=== PATIENT | female | born 1995 | race Caucasian/White ===

== ENCOUNTER 2016-12-17 04:00 | Inpatient (IN) ==
[2016-12-17] MEDS ORDERED: Famotidine 20 MG/2 ML VIAL IVP PRN (05:47)
[2016-12-17] MEDS ORDERED: miSOPROStol 25 MCG TABLET VG PRN (05:47)
[2016-12-17] MEDS ORDERED: Metoclopramide 10 MG/2 ML VIAL IVP PRN (05:47)
[2016-12-17] MEDS ORDERED: Ondansetron 4 MG/2 ML VIAL IVP PRN (05:47)
[2016-12-17] MEDS ORDERED: Naloxone 0.4 MG/ML INJ IVP PRN (05:47)
[2016-12-17 07:18] LABS: Basophils # 0.1 K/mcL (0.0-0.2); Basophils % 0.4 %; Eosinophils # 0.1 K/mcL (0.0-0.6); Eosinophils % 0.7 %; Hematocrit 39.9 % (35.3-44.9); Hemoglobin 13.6 g/dL (11.5-15.4); Immature Granulocytes % 1.2 % (0-4); Lymphocytes # 4.4 K/mcL (0.6-4.6); Lymphocytes % 26.3 %; Mean Corpuscular HGB Conc 34.1 g/dL (31.6-35.5); Mean Corpuscular Hemoglobin 30.7 pg (28.0-33.3); Mean Corpuscular Volume 90.1 fL (83.0-100.0); Mean Platelet Volume 11.3 fL (9.4-12.4); Monocytes # 1.1 K/mcL (0.0-1.3); Monocytes % 6.7 %; Neutrophils # 10.8 K/mcL (1.6-8.9); Platelet Count 245 K/mcL (140-400); Red Blood Count 4.43 M/mcL (3.82-4.97); Red Cell Distribution Width 12.4 % (11.5-14.5); Segmented Neutrophils % 64.7 %
--- NOTE | 2016-12-17 08:03 | Anesthesia Evaluation PreOp ---
Date of Encounter: 12/17/16 Time of Encounter: 08:01 - Past History Planned Operation: LOU Cardiac History: Denies any Significant Hx Pulmonary History: Smoker, Pack/yr (6) MANAGING CONSULTANT History: Other (Chronic lumbar back pain but no associated LE radiculopathy ; upon questioning about scoliosis, patient states that mother told her she has a "crooked" spine but has never had any formal diagnosis.) Other Medical History: Hepatic (hepatits C; asymptomatic) Anesthesia History: No Prior Anesthetic Complications (never had any procedure requiring neuraxial anesthesia; denies personal and family h/o GA complications) , Past Anesthesia (milan vieyra;) Test: Positive Alcohol Use: none Drug use: other Medications and Allergies Formula Tablet 1 tab PO DAILY 12/17/16 [History] Subutex 8 mg PO BID 12/17/16 [History] Allergies No Known Allergies Allergy (Verified 12/17/16 05:19) - Meds/Allergy Pre-op Review Medications Reviewed: Yes Allergies Reviewed: Yes Beta Blockers on Current Med List: No Anesthesia Results - Labs 12/17/16 06:44 Anesthesia Exam 123/79; hr 87; 98.7F; rr16 Height: 1.7m Weight: 78kg NPO (# of Hours): solids > 8h Pain Scale: 0 Pain Scale Used: Numeric (1 - 10) - HEENT Pupil (Motor): Pupils equal Mallampati: II Teeth: Poor dentition Oral Opening: Greater than 3 - MANAGING CONSULTANT LOC: Oriented MANAGING CONSULTANT Motor: Normal RUE, Normal LUE, Normal RLE, Normal LLE, Normal Face MANAGING CONSULTANT Sensory: Normal: RUE, LUE, RLE, LLE, Face - Cardiac Rhythm: Regular Murmur: None - Pulmonary Breath Sounds: bilateral Clear Respiratory Effort: Symmetrical Anesthesia Assess/Plan ASA Score: 2 Modified [place] Scale for Level of Consciousness: Cooperative, oriented, and tranquil Anesthetic Plan: Regional Autologous Blood: No Monitoring Plan: Standard Monitors Recovery Plan: Other
[2016-12-17] MEDS: Ringers Solution, Lactated 1,000 ML IVC SCH ×3 (08:47→18:55)
--- NOTE | 2016-12-17 09:01 | OB/GYN History & Physical ---
Date of Encounter: 12/17/16 Time of Encounter: 08:59 Assessment and Plan (1) 40 weeks gestation of Current visit: Yes Status: Acute patient plans to have an epidural with induction and likely . Will continue to monitor patient with FHR/tocometer. Saline IV lock, IVF as needed. (2) Elective induction of labor planned Current visit: Yes Status: Acute patient plans to have an epidural with induction and likely . Will continue to monitor patient with FHR/tocometer. Saline IV lock, IVF as needed. (3) complicated by subutex maintenance, antepartum Current visit: Yes Status: Acute History of Present Illness Chief complaint: 40 weeks ; induction HPI: Ms. Granados is a 21 year old female and 40/5 weeks. Patient states that she is a patient of Dr. Magallanes. She is A (+) and denies SROM/VB/ GBS (-); other sero neg. She is planning on having an epidural and plans to breastfeed. Last cervical check was 2m at 0700 today. FHR: 143, otherwise stable. Past Med Surg Social Fam HX - Past Medical History Medical history: non-contributory Psychiatric history: anxiety - Past Surgical History Surgical History: cholecystectomy - Social History Smoking Status: Current every day smoker Packs per day: less than a pack Alcohol use: none Drug use: other - Family History Sister Age: 24 Hx Family Cardiac Disorders: No Hx Family Respiratory Disorders: No Hx Family Cancer: No Hx Family GI Disorders: No Hx Family Genitourinary Disorders: No Hx Family Endocrine Disorder: No Hx Family Musculoskeletal Disorders: No Hx Family Neuromuscular Disorders: No Hx Family Neurologic Disorders: No Hx Family HEENT Disorders: No Hx Family Autoimmune Disorders: No Hx Family Reproductive Disorders: No Hx Family Psychosocial Disorders: No Hx Family Medical Disorders: No Obstetrical History - Pregnancies : 1 Medications and Allergies Formula Tablet 1 tab PO DAILY 12/17/16 [History] Subutex 8 mg PO BID 12/17/16 [History] Allergies No Known Allergies Allergy (Verified 12/17/16 05:19) Review of System OB All systems PM: reviewed and no additional remarkable complaints except as stated Exam - Vital Signs Vital signs: Initial Vital Signs Temp Pulse Resp BP 98.7 F 87 16 123/79 12/17/16 05:21 12/17/16 05:21 12/17/16 05:21 12/17/16 05:21 - Constitutional Constitutional: well developed, well nourished, no acute distress, average body habitus - HEENT HEENT: Mucus Membranes Moist - Neck Neck exam: full ROM, normal inspection, supple, trachea midline - Lungs Respiratory exam: CTAB - Cardiovascular Cardiovascular exam: RRR - Breasts Breast: bilateral: normal - Abdomen Abdomen: Present: bowel sounds normal, gravid, non tender - Extremities Extremities exam: full ROM, normal capillary refill, normal inspection - Cervix Dilation: 2 (per RN) - Uterus Uterus exam: Present: normal size, normal contour Results Result Diagrams: 12/17/16 06:44 Abnormal lab results WBC 16.7 K/mcL (4.3-11.1) H 12/17/16 06:44 Neutrophils # 10.8 K/mcL (1.6-8.9) H 12/17/16 06:44 All other labs normal. - VTE Reasons for not Prescribing Prophylaxis: Treatment not Indicated - Low risk for VTE - Attending Attestation I examined this patient and my medical decision-making was reviewed with Resident Physician. I agree with the documented findings, disposition and treatment plan as described except to the extent set forth below. Ester Magallanes DO
[2016-12-17] MEDS ORDERED: Acetaminophen 325 MG TABLET PO ONE (09:17)
--- NOTE | 2016-12-17 12:27 | OB Labor Progress Note ---
Date of Encounter: 12/17/16 Time of Encounter: 12:25 Labor Progress Note - Subjective Subjective: Patient resting comfortably in bed. - Cervix Cervix: - Cervix 2/80/-1 moderate and midposition membranes intact - Heart Tones Heart Tones: Baseline 135 with 15x15 accels and no decels - [place]: Irregular contractions per TOCO - Interventions Interventions: Cervical thomas catheter placed easily. 30mL sterile water placed in balloon. Patient tolerated well. - Plan Plan: Continue routine management Patient may have epidural upon request GBS status unknown; PCN prophylaxis Dr Magallanes updated with plan of care.
[2016-12-17] MEDS ORDERED: *HR* FentaNYL (PF) 100 MCG/2 ML VIAL ONE (14:24)
[2016-12-17] MEDS ORDERED: Bupivacaine-MPF 0.25% 10 ML VIAL ONE (14:24)
[2016-12-17] MEDS ORDERED: Epidural Premix (fent/bupiv) 110 ML EP ONE (14:24)
--- NOTE | 2016-12-17 15:23 | Anesthesia Procedures ---
Date of Encounter: 12/17/16 Time of Encounter: 14:49 (time of catheter placement) Procedures: Anesthesia - Epidural/Spinal Patient ID/Chart reviewed: Yes Patient examined: Yes OB Eval: Gestational age: 37 weeks 6 days OB Eval: : 1 OB Eval: Hx Para: 0 OB Eval: Dilated at (cm): 5 OB Eval: Contractions: Non-stressed pattern Consent Obtained: Yes Supplemental Oxygen: None/Room Air Site Prep: Aseptic Technique, Sterile prep and drape, Povidone-Iodine 1% Patient position: upright Local Anesthetic: Lidocaine 1% Amount of Local Anesthetic used: 3 Touhy Needle Gauge: 18 Touhy Needle Depth (cm): 5 Catheter Depth at Skin (cm): 12 Test Dose (1.5% Lido + Epi): Volume given (mls): 5 (given in 2 equally divided doses over a period of 5 min) Test Dose Result: Negative Loading Dose: 0.25% Marcaine (mls): 3 (pt already getting some degree of sensory analgesia from the test dose but no LE motor blockade and patient remains normotensive so will continue to treat this as an epidural catheter) Loading Dose: Fentanyl (mcg): 100 Loading Dose Administered: Thru Catheter Infusion Med: 0.125% Bupivacaine w/ 2 mcg/ml Fentanyl Infusion Rate (mls/hr): 10 (w/ demand bolus of 4mL q20min PRN) Catheter Secured in Place: Tegaderm, Tape Interspace Used: L4-L5 Loss of Resistance (TANNER): Yes Blood: No CSF: No Paresthesia: No Vitals + FHT's: please see Ann PARKER's electronic documentation
[2016-12-17] MEDS ORDERED: Bupivacaine-MPF 0.25% 10 ML VIAL EP ONE (15:25)
[2016-12-17] MEDS ORDERED: *HR* FentaNYL (PF) 100 MCG/2 ML VIAL EP ONE (15:25)
[2016-12-17] MEDS ORDERED: Epidural Premix (fent/bupiv) 110 ML EP SCH (15:30)
--- NOTE | 2016-12-17 15:48 | OB Labor Progress Note ---
Date of Encounter: 12/17/16 Time of Encounter: 15:45 Labor Progress Note - Subjective Subjective: Patient resting comfortably in bed after epidural placement. - Cervix Cervix: 6/80/-1 soft midposition - Heart Tones Heart Tones: 150's moderate variability with 15x15 accels and occasional variable decels - Creola Creola: contractions every 2 to 3 minutes 60 to 90 seconds in length and palpate mild. uterus palpates soft between contractions. - Interventions Interventions: AROM for small amount of clear fluid; IUPC placed. Patient and fetus tolerated well. - Plan Plan: Continue expectant management Anticipating Dr Magallanes updated on POC
[2016-12-17] MEDS ORDERED: Oxytocin 20 units/ LR 1000 mL 20 UNIT/1,000 ML BAG IVC SCH (16:00)
--- NOTE | 2016-12-17 20:20 | Anesthesia Progress Note ---
Date of Encounter: 12/17/16 Time of Encounter: 20:19 Anesthesia Note - Note Note: called to patient bedside to evaluate breakthrough labor pain. Patient reports bilateral abdominal pain. 5mL of 0.25% bupivicaine administered via epidural catheter. Patient reports significant improvement in pain scores. VSS 12/17/16 20:19
[2016-12-17] MEDS ORDERED: *HR* Oxytocin 10 UNIT/ML VIAL IM ONE (23:53)
--- NOTE | 2016-12-18 00:51 | OB/GYN Procedure Note ---
Delivery - Delivery Date: 12/18/16 Provider: Ester Magallanes Intrapartum events: none Delivery induction: AROM, oxytocin, thomas, misoprostol Delivery monitor: external FHT, external uterine, internal uterine Anesthesia: epidural - Infant (s) A Delivery Date: 12/17/16 Delivery Time: 00:26 Presentation: vertex Position: CLIVE Route of delivery: Gender: Female Viability: Viable Pounds: 7 Ounces: 11 at 1 minute: 6 at 5 mins: 9 Shoulder Dystocia: encountered Shoulder Dystocia Maneuvers: Miquel maneuver, suprapubic pressure, delivery of posterior arm Shoulder dystocia time elapsed: 80 seconds Specimens collected: cord blood, venous cord gases, arterial cord gases Placenta: spontaneous Cord: nuchal cord, 3 umbilical vessels, delivered through nuchal - Repair Episiotomy: none Laceration Description: Perineal - 1st Degree (hemostatic without repair) - Complications Delivery complications: none Delivery comments: Patient complete and pushing. Delivered a viable female weighing 7 pounds 11 oz with Apgars 6 and 9 at one and five minutes respectively over a first degree perineal laceration. Following delivery of the head there was a loose nuchal cord noted. Shoulder dystocia was encountered by MEGHAN Bennett. Patient was placed in Miquel and suprapubic pressure was provided by RN. Gentle downward traction to head did not deliver the anterior shoulder. Upon palpation the posterior hand was at the mentum. The posterior arm was then brought across the chest thus delivering the posterior shoulder. The remainder of the delivered with maternal effort. The cord was clamped and cut. A segment of cord was collected for cord gases. Cord blood was then collected. The placenta delivered spontaneously, complete, and intact with a 3 vessel cord. Mother and are recovering in LDR in stable condition. - Disposition Mom disposition: stable in LDR disposition: stable in LDR
[2016-12-18] MEDS ORDERED: Ibuprofen 600 MG TABLET PO ONE (00:57)
[2016-12-18] MEDS ORDERED: Acetaminophen 325 MG TABLET PO PRN (02:16)
[2016-12-18] MEDS ORDERED: Measles/Mumps/Rubella Vacc 0.5 ML VIAL SQ PRN (02:16)
[2016-12-18 05:52] LABS: Basophils % 0.1 %; Hematocrit 32.2 % (35.3-44.9); Hemoglobin 11.3 g/dL (11.5-15.4); Immature Granulocytes % 0.8 % (0-4); Lymphocytes # 2.3 K/mcL (0.6-4.6); Mean Corpuscular HGB Conc 35.1 g/dL (31.6-35.5); Mean Corpuscular Hemoglobin 30.6 pg (28.0-33.3); Mean Corpuscular Volume 87.3 fL (83.0-100.0); Mean Platelet Volume 11.1 fL (9.4-12.4); Monocytes # 1.9 K/mcL (0.0-1.3); Monocytes % 6.7 %; Neutrophils # 24.1 K/mcL (1.6-8.9); Platelet Count 198 K/mcL (140-400); Red Blood Count 3.69 M/mcL (3.82-4.97); Red Cell Distribution Width 12.2 % (11.5-14.5); Segmented Neutrophils % 84.4 %
[2016-12-18 06:22] LABS: Platelet Estimate Normal (Normal)
[2016-12-18] MEDS ORDERED: SUBUTEX 8MG PO SCH (09:00)
[2016-12-18] MEDS ORDERED: Prenatal Vit/FA 1 EACH TABLET PO SCH (09:00)
[2016-12-18] MEDS: Prenatal Vit/FA 1 EACH TABLET PO SCH (09:18)
[2016-12-18] MEDS: Ibuprofen 600 MG TABLET PO PRN ×2 (09:22→20:12)
--- NOTE | 2016-12-19 09:47 | OB/GYN Progress Note ---
Date of Encounter: 12/19/16 Time of Encounter: 09:45 - Assessment and Plan (1) 40 weeks gestation of Current Visit: Yes Status: Acute s/p vaginal delivery (2) Elective induction of labor planned Current Visit: Yes Status: Acute (3) complicated by subutex maintenance, antepartum Current Visit: Yes Status: Acute Patient is taking her own Subutex. Doing well. (4) Vaginal delivery Current Visit: Yes Status: Acute routine PP care Subjective - Subjective Interval history: Patient without complaints. Patient reports: appetite normal, voiding normally, pain well controlled, ambulating normally, no nauseated : doing well, in NICU, bottle feeding Objective - Latest Vital Signs Latest vital signs: Vital Signs Temp Pulse Resp BP Pulse Ox 12/18/16 20:05 97.6 F 77 16 118/83 100 12/18/16 15:18 97.9 F 105 16 112/75 98 12/18/16 15:17 97.9 F 105 16 112/75 98 Intake and Output 12/18/16 12/19/16 12/19/16 23:59 07:59 15:59 Intake Total 200 / 200 Output Total 500 / 500 300 / 300 Balance -500 / -500 -100 / -100 Intake: Oral 200 / 200 Output: Urine 500 / 500 300 / 300 Other: Weight 71.6 kg Patient Weight 12/19/16 23:59 Weight 71.6 kg - Exam Lungs: bilateral: normal Chest: Normal S1, Normal S2 Extremities: Present: normal. Absent: tenderness Abdomen: Present: normal appearance, soft. Absent: tenderness Uterus: Present: firm. Absent: tenderness Uterus Position: At Umbilicus
--- NOTE | 2016-12-19 10:31 | Discharge Summary ---
Date of Encounter: 12/19/16 Time of Encounter: 09:00 - Discharge Diagnosis (1) 40 weeks gestation of Priority: Secondary Status: Acute (2) Elective induction of labor planned Priority: Secondary Status: Acute (3) complicated by subutex maintenance, antepartum Priority: Secondary Status: Acute (4) Vaginal delivery Priority: Primary Status: Acute - Discharge Medications Home Medications: Formula Tablet 1 tab PO DAILY 12/17/16 [History] Subutex 8 mg PO BID 12/17/16 [History] Allergies/Adverse Reactions: Allergies No Known Allergies Allergy (Verified 12/17/16 05:19) Data Procedures and tests throughout hospitalization: Laboratory Tests 12/17/16 12/18/16 06:44 05:27 WBC 16.7 H 28.6 H D RBC 4.43 3.69 L Hgb 13.6 11.3 L D Hct 39.9 32.2 L MCV 90.1 87.3 MCH 30.7 30.6 MCHC 34.1 35.1 RDW 12.4 12.2 Plt Count 245 198 MPV 11.3 11.1 Immature Gran % 1.2 0.8 Seg Neutrophils % 64.7 84.4 Lymphocytes % 26.3 8.0 Monocytes % 6.7 6.7 Eosinophils % 0.7 0.0 Basophils % 0.4 0.1 Neutrophils # 10.8 H 24.1 H Lymphocytes # 4.4 2.3 Monocytes # 1.1 1.9 H Eosinophils # 0.1 0.0 Basophils # 0.1 0.0 Platelet Estimate Normal Date of admission: 12/17/16 05:09 Primary care physician: Kade Ferrell Consults: 12/18/16 02:16 Consult to Bobbin Fixer [CONS] Routine Comment: Vaginal delivery, consult needed Consult to [place] [CONS] Routine Reason for SW Consult: subutex use during . no longer in bert group Discharging clinician: Ester Magallanes Anticipated date of discharge: 12/19/16 - Patient Status Disposition: Home, Self-Care Condition: Good Overall status at discharge: patient is progressing back to baseline - Discharge Instructions Follow Up With: Kade Ferrell, PAC [Primary Care Provider] - Hospital Course Reason for admission: induction of labor Delivery: Episiotomy: none Laceration: 1st degree Other procedures: none complications: none Discharge diagnosis: IUP at term delivered baby: female Time Attestation: Total time spent providing and/or coordinating discharge services: Time Spent: Less than 30 minutes Exam - Constitutional Vitals: Temp Pulse Resp BP Pulse Ox 97.7 F 86 16 124/86 100 12/19/16 10:06 12/19/16 10:06 12/19/16 10:06 12/19/16 10:06 12/19/16 10:06
[2016-12-19] MEDS: Ibuprofen 600 MG TABLET PO PRN (11:23)
[2016-12-19] MEDS: Prenatal Vit/FA 1 EACH TABLET PO SCH (11:24)
[2016-12-19] MEDS ORDERED: Methylergonovine 0.2 MG/ML AMPUL IM ONE (11:36)
[2016-12-20 10:15] VITALS: BP 124/86
== END 2016-12-19 11:37 | disposition home or self-care (01) | DRG 560 ==
LOC: 1NENULAB 05:09 → 1NENUOBS 23:35 → 1NENULAB 23:44 → 1NENUOBS 12-18 02:14
PROVIDERS: ADMIT Obstetrics & Gynecology; ATTEND Obstetrics & Gynecology